=== PATIENT | female | born 1970 | race Caucasian/White ===

== ENCOUNTER → 2023-08-14 | Day surgery (SDC) | payer BC ==
[~2023-08-14] MED LIST: EPINEPHrine 1 MG/ML AMP ONE; Gadobenate Dimeglumine 529 MG/1 ML (5 ML SDV) ONE; Iopamidol 300 61% 100 ML VIAL FS ONE; Lidocaine 1% PF 5 ML VIAL ONE
== END ==
LOC: CSHRAD 10:02 → EDSTATUS 11:00
PROVIDERS: ATTEND Orthopaedic Surgery
PROC: BP38YZZ Magnetic Resonance Imaging (MRI) of Right Shoulder using Other Contrast (ICD-10-PCS; principal; 2023-08-14)
DX: M24.811 Other specific joint derangements of right shoulder, not elsewhere classified (principal)
CPT/HCPCS: 23350; A9577; J0171; J7050; Q9967

== ENCOUNTER 2025-07-08 15:26 | Outpatient (CLI) | payer BC | END 2025-07-08 15:27 | disposition home or self-care (01) | LOC: CSHMAMMO 15:26 | PROVIDERS: ATTEND Family Medicine | DX: Z12.31 Encounter for screening mammogram for malignant neoplasm of breast (principal); Z80.3 Family history of malignant neoplasm of breast; Z98.82 Breast implant status | CPT/HCPCS: 77063; 77067 ==